=== PATIENT | male | born 1955 | race Caucasian/White ===

== ENCOUNTER → 2017-12-14 | Outpatient (CLI) | payer OTHER | LOC: HYPER 11-24 11:15 | DX: T81.4XXA Infection following a procedure, initial encounter (principal); M70.42 Prepatellar bursitis, left knee; M19.90 Unspecified osteoarthritis, unspecified site; Z87.891 Personal history of nicotine dependence; Z96.652 Presence of left artificial knee joint; Y92.89 Other specified places as the place of occurrence of the external cause; Y83.8 Other surgical procedures as the cause of abnormal reaction of the patient, or of later complication, without mention of misadventure at the time of the procedure ==

== ENCOUNTER → 2017-12-28 | Outpatient (CLI) | payer OTHER | LOC: HYPER 07:06 | DX: T81.49XD Infection following a procedure, other surgical site, subsequent encounter (principal); T81.89XD Other complications of procedures, not elsewhere classified, subsequent encounter; A49.01 Methicillin susceptible Staphylococcus aureus infection, unspecified site; G89.4 Chronic pain syndrome; M70.42 Prepatellar bursitis, left knee; M19.90 Unspecified osteoarthritis, unspecified site; Z87.891 Personal history of nicotine dependence; Z96.652 Presence of left artificial knee joint; Y83.8 Other surgical procedures as the cause of abnormal reaction of the patient, or of later complication, without mention of misadventure at the time of the procedure ==

== ENCOUNTER → 2018-01-10 | Outpatient (CLI) | payer OTHER | LOC: HYPER 06:59 | DX: T81.49XD Infection following a procedure, other surgical site, subsequent encounter (principal); T81.31XD Disruption of external operation (surgical) wound, not elsewhere classified, subsequent encounter; A49.01 Methicillin susceptible Staphylococcus aureus infection, unspecified site; G89.4 Chronic pain syndrome; M19.90 Unspecified osteoarthritis, unspecified site; Z87.891 Personal history of nicotine dependence; Z96.652 Presence of left artificial knee joint; Y83.8 Other surgical procedures as the cause of abnormal reaction of the patient, or of later complication, without mention of misadventure at the time of the procedure ==

== ENCOUNTER → 2018-01-24 | Outpatient (CLI) | payer OTHER | LOC: HYPER 06:53 | DX: T81.49XD Infection following a procedure, other surgical site, subsequent encounter (principal); A49.01 Methicillin susceptible Staphylococcus aureus infection, unspecified site; G89.4 Chronic pain syndrome; M70.42 Prepatellar bursitis, left knee; M19.90 Unspecified osteoarthritis, unspecified site; Z87.891 Personal history of nicotine dependence; Z96.652 Presence of left artificial knee joint; Y83.8 Other surgical procedures as the cause of abnormal reaction of the patient, or of later complication, without mention of misadventure at the time of the procedure ==

== ENCOUNTER → 2018-01-25 | Outpatient (CLI) | payer OTHER | LOC: HYPER 06:49 | DX: T81.49XD Infection following a procedure, other surgical site, subsequent encounter (principal); T81.31XD Disruption of external operation (surgical) wound, not elsewhere classified, subsequent encounter; A49.01 Methicillin susceptible Staphylococcus aureus infection, unspecified site; G89.4 Chronic pain syndrome; M70.42 Prepatellar bursitis, left knee; M19.90 Unspecified osteoarthritis, unspecified site; Z87.891 Personal history of nicotine dependence; Z96.652 Presence of left artificial knee joint; Y83.8 Other surgical procedures as the cause of abnormal reaction of the patient, or of later complication, without mention of misadventure at the time of the procedure ==

== ENCOUNTER → 2018-03-09 | Outpatient (CLI) | payer OTHER | LOC: HYPER 02-08 07:32 | DX: T81.41XD Infection following a procedure, superficial incisional surgical site, subsequent encounter (principal); A49.01 Methicillin susceptible Staphylococcus aureus infection, unspecified site; G89.4 Chronic pain syndrome; M70.42 Prepatellar bursitis, left knee; M19.90 Unspecified osteoarthritis, unspecified site; Z87.891 Personal history of nicotine dependence; Z96.652 Presence of left artificial knee joint; Y83.8 Other surgical procedures as the cause of abnormal reaction of the patient, or of later complication, without mention of misadventure at the time of the procedure ==

== ENCOUNTER → 2018-04-06 | Outpatient (CLI) | payer OTHER | LOC: HYPER 06:33 | DX: T81.49XD Infection following a procedure, other surgical site, subsequent encounter (principal); A49.01 Methicillin susceptible Staphylococcus aureus infection, unspecified site; G89.4 Chronic pain syndrome; M19.90 Unspecified osteoarthritis, unspecified site; M70.42 Prepatellar bursitis, left knee; Z87.891 Personal history of nicotine dependence; Z96.652 Presence of left artificial knee joint; Y83.8 Other surgical procedures as the cause of abnormal reaction of the patient, or of later complication, without mention of misadventure at the time of the procedure ==

== ENCOUNTER → 2018-04-28 | Outpatient (CLI) | payer OTHER | LOC: HYPER 07:22 | DX: T84.023D Instability of internal left knee prosthesis, subsequent encounter (principal); T81.31XD Disruption of external operation (surgical) wound, not elsewhere classified, subsequent encounter; A49.01 Methicillin susceptible Staphylococcus aureus infection, unspecified site; G89.4 Chronic pain syndrome; M70.42 Prepatellar bursitis, left knee; M19.90 Unspecified osteoarthritis, unspecified site; Z96.652 Presence of left artificial knee joint; Z87.891 Personal history of nicotine dependence; Y83.8 Other surgical procedures as the cause of abnormal reaction of the patient, or of later complication, without mention of misadventure at the time of the procedure ==

== ENCOUNTER → 2018-05-26 | Outpatient (CLI) | payer OTHER | LOC: HYPER 06:52 | DX: T84.023D Instability of internal left knee prosthesis, subsequent encounter (principal); A49.01 Methicillin susceptible Staphylococcus aureus infection, unspecified site; G89.4 Chronic pain syndrome; M19.90 Unspecified osteoarthritis, unspecified site; M70.42 Prepatellar bursitis, left knee; Z87.891 Personal history of nicotine dependence; Z96.652 Presence of left artificial knee joint; Y83.8 Other surgical procedures as the cause of abnormal reaction of the patient, or of later complication, without mention of misadventure at the time of the procedure ==

== ENCOUNTER → 2018-06-22 | Outpatient (CLI) | payer OTHER | LOC: HYPER 06:53 | DX: T84.023D Instability of internal left knee prosthesis, subsequent encounter (principal); A49.01 Methicillin susceptible Staphylococcus aureus infection, unspecified site; G89.4 Chronic pain syndrome; M19.90 Unspecified osteoarthritis, unspecified site; M70.42 Prepatellar bursitis, left knee; Z87.891 Personal history of nicotine dependence; Z96.652 Presence of left artificial knee joint; Y83.8 Other surgical procedures as the cause of abnormal reaction of the patient, or of later complication, without mention of misadventure at the time of the procedure ==

== ENCOUNTER → 2018-07-20 | Outpatient (CLI) | payer OTHER | LOC: HYPER 06:35 | DX: T84.023D Instability of internal left knee prosthesis, subsequent encounter (principal); T81.49XD Infection following a procedure, other surgical site, subsequent encounter; L97.122 Non-pressure chronic ulcer of left thigh with fat layer exposed; A49.01 Methicillin susceptible Staphylococcus aureus infection, unspecified site; G89.4 Chronic pain syndrome; M70.42 Prepatellar bursitis, left knee; M19.90 Unspecified osteoarthritis, unspecified site; Z96.652 Presence of left artificial knee joint; Z87.891 Personal history of nicotine dependence; Y83.8 Other surgical procedures as the cause of abnormal reaction of the patient, or of later complication, without mention of misadventure at the time of the procedure ==

== ENCOUNTER → 2018-09-13 | Outpatient (CLI) | payer OTHER | LOC: HYPER 07:03 | DX: T81.49XD Infection following a procedure, other surgical site, subsequent encounter (principal); L97.122 Non-pressure chronic ulcer of left thigh with fat layer exposed; M70.42 Prepatellar bursitis, left knee; M19.90 Unspecified osteoarthritis, unspecified site; A49.01 Methicillin susceptible Staphylococcus aureus infection, unspecified site; Z96.652 Presence of left artificial knee joint; Z87.891 Personal history of nicotine dependence; Y83.8 Other surgical procedures as the cause of abnormal reaction of the patient, or of later complication, without mention of misadventure at the time of the procedure ==

== ENCOUNTER → 2018-09-27 | Outpatient (CLI) | payer OTHER | LOC: HYPER 06:35 | DX: T81.49XD Infection following a procedure, other surgical site, subsequent encounter (principal); T84.023D Instability of internal left knee prosthesis, subsequent encounter; L97.122 Non-pressure chronic ulcer of left thigh with fat layer exposed; M19.90 Unspecified osteoarthritis, unspecified site; M70.42 Prepatellar bursitis, left knee; Z87.891 Personal history of nicotine dependence; Z96.652 Presence of left artificial knee joint; Z49.01 Encounter for fitting and adjustment of extracorporeal dialysis catheter; Y83.8 Other surgical procedures as the cause of abnormal reaction of the patient, or of later complication, without mention of misadventure at the time of the procedure ==

== ENCOUNTER → 2018-10-11 | Outpatient (CLI) | payer OTHER | LOC: HYPER 06:43 | DX: T81.49XD Infection following a procedure, other surgical site, subsequent encounter (principal); L97.122 Non-pressure chronic ulcer of left thigh with fat layer exposed; A49.01 Methicillin susceptible Staphylococcus aureus infection, unspecified site; G89.4 Chronic pain syndrome; M19.90 Unspecified osteoarthritis, unspecified site; M70.42 Prepatellar bursitis, left knee; Z87.891 Personal history of nicotine dependence; Z96.652 Presence of left artificial knee joint; Y83.8 Other surgical procedures as the cause of abnormal reaction of the patient, or of later complication, without mention of misadventure at the time of the procedure ==

== ENCOUNTER → 2018-10-24 | Outpatient (CLI) | payer OTHER | LOC: HYPER 07:36 | DX: T84.023D Instability of internal left knee prosthesis, subsequent encounter (principal); T81.49XD Infection following a procedure, other surgical site, subsequent encounter; A49.01 Methicillin susceptible Staphylococcus aureus infection, unspecified site; L97.122 Non-pressure chronic ulcer of left thigh with fat layer exposed; G89.4 Chronic pain syndrome; M70.42 Prepatellar bursitis, left knee; M19.90 Unspecified osteoarthritis, unspecified site; Z87.891 Personal history of nicotine dependence; Z96.652 Presence of left artificial knee joint ==

== ENCOUNTER → 2018-11-10 | Outpatient (CLI) | payer OTHER | LOC: HYPER 11-07 06:54 | DX: T84.023D Instability of internal left knee prosthesis, subsequent encounter (principal); T81.49XD Infection following a procedure, other surgical site, subsequent encounter; A49.01 Methicillin susceptible Staphylococcus aureus infection, unspecified site; L97.122 Non-pressure chronic ulcer of left thigh with fat layer exposed; M70.42 Prepatellar bursitis, left knee; M19.90 Unspecified osteoarthritis, unspecified site; Z87.891 Personal history of nicotine dependence; Z96.652 Presence of left artificial knee joint ==

== ENCOUNTER → 2018-11-29 | Outpatient (CLI) | payer OTHER | LOC: HYPER 06:59 | DX: T84.023D Instability of internal left knee prosthesis, subsequent encounter (principal); L97.122 Non-pressure chronic ulcer of left thigh with fat layer exposed; A49.01 Methicillin susceptible Staphylococcus aureus infection, unspecified site; G89.4 Chronic pain syndrome; M70.42 Prepatellar bursitis, left knee; M19.90 Unspecified osteoarthritis, unspecified site; Z87.891 Personal history of nicotine dependence; Z96.652 Presence of left artificial knee joint; Y83.8 Other surgical procedures as the cause of abnormal reaction of the patient, or of later complication, without mention of misadventure at the time of the procedure ==

== ENCOUNTER → 2018-12-13 | Outpatient (CLI) | payer OTHER | LOC: HYPER 07:23 | DX: T84.023D Instability of internal left knee prosthesis, subsequent encounter (principal); L97.122 Non-pressure chronic ulcer of left thigh with fat layer exposed; A49.01 Methicillin susceptible Staphylococcus aureus infection, unspecified site; G89.4 Chronic pain syndrome; M70.42 Prepatellar bursitis, left knee; M19.90 Unspecified osteoarthritis, unspecified site; Z87.891 Personal history of nicotine dependence; Z96.652 Presence of left artificial knee joint; Y83.8 Other surgical procedures as the cause of abnormal reaction of the patient, or of later complication, without mention of misadventure at the time of the procedure ==

== ENCOUNTER → 2018-12-28 | Outpatient (CLI) | payer OTHER | LOC: HYPER 11:32 | DX: T84.54XD Infection and inflammatory reaction due to internal left knee prosthesis, subsequent encounter (principal); T84.023D Instability of internal left knee prosthesis, subsequent encounter; L97.122 Non-pressure chronic ulcer of left thigh with fat layer exposed; A49.01 Methicillin susceptible Staphylococcus aureus infection, unspecified site; M70.42 Prepatellar bursitis, left knee; G89.4 Chronic pain syndrome; M19.90 Unspecified osteoarthritis, unspecified site; Z87.891 Personal history of nicotine dependence; Y83.1 Surgical operation with implant of artificial internal device as the cause of abnormal reaction of the patient, or of later complication, without mention of misadventure at the time of the procedure ==

== ENCOUNTER → 2019-01-12 | Outpatient (CLI) | payer OTHER | LOC: HYPER 01-10 10:00 | DX: T81.49XD Infection following a procedure, other surgical site, subsequent encounter (principal); L97.122 Non-pressure chronic ulcer of left thigh with fat layer exposed; M70.42 Prepatellar bursitis, left knee; M19.90 Unspecified osteoarthritis, unspecified site; A49.01 Methicillin susceptible Staphylococcus aureus infection, unspecified site; Z87.891 Personal history of nicotine dependence; Z96.652 Presence of left artificial knee joint; Y83.8 Other surgical procedures as the cause of abnormal reaction of the patient, or of later complication, without mention of misadventure at the time of the procedure ==